=== PATIENT | male | born 1995 | race Caucasian/White ===

== ENCOUNTER 2016-11-10 23:07 | Emergency (ER) | payer BC ==
[2016-11-10 23:17] VITALS: BP 147/99
--- NOTE | 2016-11-10 23:26 | EDM.PDOC ---
ED HPI Skin/Rash - General Chief Complaint: Laceration Stated Complaint: LEFT RING FINGER INJURY Time Seen by Provider: 11/10/16 23:15 Source: Reports: Patient History Limitations: Reports: No limitations - History of Present Illness INITIAL COMMENTS - FREE TEXT/NARRATIVE: 21-year-old male reports that he suffered a knee injury to his distal right fourth finger early this morning about 10-12 hours ago. This resulted when the car door latched on his distal finger. Resultant laceration through the nailbed and distal finger. He said it with a bandage since time of injury. Constant throbbing pain going to the ED today. This toxoid is up to date. Symptom Onset Date: 11/10/16 Symptom Onset Time: 13:00 Timing: Reports: still present Location, Skin: Reports: upper extremity, right (Right distal fourth finger. Of note he is right-hand dominant.) Quality: Reports: Ache, Throbbing Severity: moderate Known Identified Source: yes Place of Occurrence: other Sick Contact: no Associated Symptoms: Reports: no other symptoms Similar Symptoms Previously: no Recent Medical Care: no Treatments [employer]: Reports: NSAIDS - Related Data Allergies Allergy/AdvReac Type Severity Reaction Status Date / Time No Known Allergies Allergy Verified 11/10/16 23:17 Home Meds: Ambulatory Orders Medication Instructions Recorded Confirmed oxyCODONE HCl/Acetaminophen 1 - 2 each PO Q4H PRN #5 tablet 11/11/16 [Percocet 5-325 mg Tablet] Social & Family History - Living Situation & Occupation Living situation: Reports: single Occupation: employed ED ROS GENERAL - Review of Systems Review Of Systems: See Below Constitutional: Reports: no symptoms Respiratory: Reports: No Symptoms Endocrine: Reports: no symptoms GI/Abdominal: Reports: No symptoms : Reports: no symptoms Musculoskeletal: Reports: no symptoms Skin: Reports: no symptoms Neurological: Reports: No Symptoms Hematologic/Lymphatic: Reports: no symptoms Immunologic: Reports: no symptoms ED EXAM, SKIN/RASH Exam: See Below Exam Limited By: No limitations General Appearance: alert, WD/WN, no apparent distress Extremities: other (Examination of his right fourth finger reveals a laceration that travels across the distal one third of his nail with the underlying subungual hematoma. Laceration and travels across the pulp space approximately 9 mm in length. Tissue is macerated at this time suggesting that it has been longer than 12 hours since injury. The fingernails intact.) Neurological: alert, oriented, CN II-XII intact, normal cognition, normal gait ED SKIN PROCEDURES - Laceration/Wound Repair Right Anterior Distal Finger Lac/wound length in cm: 1.5 (Distal volar surface right fourth finger) Appearance: subcutaneous Distal NVT: neuro & vascular intact Anesthetic type: local Local anesthesia - Lidocaine (Xylocaine): 1% plain Local anesthetic volume: 2cc Skin prep: saline Exploration/Debridement/Repair: wound explored Closed with: sutures Suture size: 4-0 # of sutures: 4 Suture type: nylon, interrupted, simple Course - Vital Signs Last Recorded V/S: Last Vital Signs Temp 36.4 C 11/10/16 23:14 Pulse 66 11/10/16 23:14 Resp 18 11/10/16 23:14 BP 147/99 H 11/10/16 23:14 Pulse Ox 100 11/10/16 23:14 - Orders/Labs/Meds Orders: Active Orders 24 hr Category Date Time Status Fingers Fourth Digit Rt F8 [CR] Stat Exams 11/10/16 23:21 Taken Meds: Medications Discontinued Medications Generic Name Dose Route Start Last Admin Trade Name Freq PRN Reason Stop Dose Admin Doxycycline Hyclate 200 mg 11/10/16 23:53 11/11/16 00:04 Vibramycin PO 11/10/16 23:54 200 mg ONETIME ONE Administration Ibuprofen 600 mg 11/10/16 23:53 11/11/16 00:04 Motrin PO 11/10/16 23:54 600 mg ONETIME ONE Administration Lidocaine HCl 50 ml 11/10/16 23:53 11/11/16 00:04 Xylocaine 1% INJECT 11/10/16 23:54 50 ml ONETIME ONE Administration Lidocaine HCl Confirm 11/11/16 00:01 Xylocaine 1% Administered 11/11/16 00:02 Dose 50 ml .ROUTE .STK-MED ONE Oxycodone/Acetaminophen 1 tab 11/10/16 23:53 11/11/16 00:04 Percocet 325-5 Mg PO 11/10/16 23:54 1 tab ONETIME ONE Administration - Radiology Interpretation Free Text/Narrative:: 21-year-old male presents the ED with the injury to his right distal fourth finger that occurred about 12 hours ago. He was slammed accidentally in the car door and the door latched. Injury resulted in a laceration of the pulp space and laceration through the distal fingernail with a subungual hematoma. Constant throbbing pain brought into the ED. His tetanus toxoid is up to date. X -ray will be done to see if there is an underlying fracture of the distal phalanx. - Re-Assessments/Exams Free Text/Narrative Re-Assessment/Exam: 11/10/16 23:55 x-ray reveals no fractures to the distal phalanx. The wound is gaping and actively bleeding. He is currently being cleansed. We will be sutured under local anesthetic. 11/11/16 00:09 one was cleansed and sutured x4 under local anesthetic a 1% lidocaine. Sutures will be to be removed in 10 days' time. Daily cleanse the wound soap and water and apply topical antibiotic and band aids to keep clean. Departure - Departure Time of Disposition: 00:09 Disposition: Home, Self-Care 01 Condition: fair Clinical Impression: Nailbed laceration, finger Qualifiers: Encounter type: initial encounter Qualified Code(s): S61.319A - Laceration without foreign body of unspecified finger with damage to nail, initial encounter Laceration of finger of right hand Qualifiers: Encounter type: initial encounter Qualified Code(s): S61.219A - Laceration without foreign body of unspecified finger without damage to nail, initial encounter Prescriptions: oxyCODONE HCl/Acetaminophen [Percocet 5-325 mg Tablet] 1 - 2 each PO Q4H PRN #5 tablet PRN Reason: pain relief. Referrals: PCP,None [Primary Care Provider] - Forms: ED Department Discharge Additional Instructions: Evaluation in the emergency department tonight in regards to injury to the distal aspect of your right fourth finger. It was accidentally slammed in a car door latched on the finger approximately 10-12 hours prior to coming to the ED. This resulted in a subungual hematoma or collection of blood under the fingernail causing throbbing pain. He laceration to the distal one third of the nailbed as well as a laceration to the pulp space where the volar aspect of the finger. X-ray done does not reveal any broken bones. Wound was cleansed and then sutured under local anesthetic x3 to provide hemostasis and help it heal quicker. One dose of antibiotic doxycycline 200 mg in the ED. Treatment otherwise as pain medication Percocet tablet one tablet every 4-6 hours with Motrin 600 mg every 6 hours for pain relief. Daily cleanse the wound soap and water. Showering is okay. When should not be soaked under water however until the sutures are removed. Sutures need to be removed in 10 days' time. Apply topical antibiotic such as bacitracin or Polysporin to the wound daily after cleanse and cover with bandages to keep clean. - My Orders Last 24 Hours: My Active Orders 11/10/16 23:21 Fingers Fourth Digit Rt F8 [CR] Stat - Assessment/Plan Last 24 Hours: My Active Orders 11/10/16 23:21 Fingers Fourth Digit Rt F8 [CR] Stat
[2016-11-10] MEDS ORDERED: Doxycycline 100 MG Cap PO ONE (23:53)
[2016-11-10] MEDS ORDERED: Ibuprofen 600 MG Tab PO ONE (23:53)
[2016-11-10] MEDS ORDERED: Lidocaine 1% 10 ML MDV INJECT ONE (23:53)
[2016-11-10] MEDS ORDERED: Acetaminophen/oxyCODONE 325-5 MG Tab PO ONE (23:53)
[2016-11-11] MEDS ORDERED: Lidocaine 1% 50 ML MDV ONE (00:01)
--- NOTE | 2016-11-11 07:44 | CR ---
Right fourth finger: Four views centered to the right fourth finger were obtained. Joint spaces are maintained. No fracture, dislocation or other bony abnormality is seen. Distal soft tissue swelling is present. Impression: 1. Distal soft tissue swelling. 2. No bony abnormality is identified on right fourth finger study. Diagnostic code #2
== END 2016-11-11 00:25 | disposition home or self-care (01) ==
LOC: JD.ED 23:07
DX: S61.314A Laceration without foreign body of right ring finger with damage to nail, initial encounter (principal); W23.0XXA Caught, crushed, jammed, or pinched between moving objects, initial encounter
CPT/HCPCS: 12001; 73140; 99283; A9270